=== PATIENT | female | born 1945 | race Caucasian/White ===

== ENCOUNTER 2018-08-05 09:56 | Day surgery (SDC) | payer MEDICARE, MEDICAID ==
[2018-08-05] VITALS (11 sets, daily range): BP systolic 109–136; BP diastolic 57–95
[~2018-08-05] VITALS: Ht 160 cm; Wt 64.7 kg
[2018-08-05] MEDS ORDERED: METO-395 PO (10:29)
[2018-08-05] MEDS ORDERED: ALPR1TAB2 PO (10:29)
[2018-08-05] MEDS ORDERED: [UNRECOGNIZED DRUG - CODE] PO (10:29)
[2018-08-05] MEDS ORDERED: GABA-530 PO (10:29)
[2018-08-05] MEDS ORDERED: ATOR40TA PO (10:29)
[2018-08-05] MEDS ORDERED: nitroGLYCERIN 0.4mg SUBLingual tab SL PRN (10:35)
[2018-08-05] MEDS ORDERED: LORazepam 0.5 MG tablet PO PRN (10:35)
[2018-08-05] MEDS ORDERED: diphenhydrAMINE 25mg capsule PO PRN (10:35)
[2018-08-05] MEDS ORDERED: normal saline 1000ml 1,000 ML IV SCH (10:35)
[2018-08-05] MEDS ORDERED: fentaNYL/PF 50MCG/1 ML 2ML syringe ONE ×2 (11:22→11:54)
[2018-08-05] MEDS ORDERED: iohexol 350 MG/ML 50ML vial IV ONE (11:22)
[2018-08-05] MEDS ORDERED: iohexol 350MG/ML 100ml bottle IV ONE (11:22)
[2018-08-05] MEDS ORDERED: midazolam 2 mg/2 ml injection ONE ×2 (11:22→11:55)
[2018-08-05] MEDS ORDERED: LIDOcaine 1% (10mg/ml)w/preservative injection 20ml MDV ONE (11:22)
[2018-08-05] MEDS ORDERED: proCHLORperazine 10 MG/2 ml inj IV PRN (16:20)
[2018-08-05] MEDS ORDERED: OXAZEpam 15mg capsule PO PRN (16:20)
[2018-08-05] MEDS ORDERED: ondansetron/PF 4mg/2ml inj IV PRN (16:20)
[2018-08-05] MEDS ORDERED: HYDROcodone/acetaminophen 10/325mg tab PO PRN (16:25)
[2018-08-05] MEDS ORDERED: HYDROcodone/acetaminophen 5mg/325mg tablet PO PRN (16:25)
== END 2018-08-05 19:10 | disposition home or self-care (01) ==
LOC: SSTAY O 09:56
PROVIDERS: ATTEND Internal Medicine Cardiovascular Disease
DX: I25.10 Atherosclerotic heart disease of native coronary artery without angina pectoris (principal); Z88.1 Allergy status to other antibiotic agents; Z88.8 Allergy status to other drugs, medicaments and biological substances
CPT/HCPCS: 93005; 93458; 99152; A6257; J1644; J2001; J2250; J3010; J7030; Q0163; Q9967; 99153; A4620; C1760; C1769